=== PATIENT | female | born 1965 ===

== ENCOUNTER 2017-08-23 10:01 | Emergency (ER) | payer SELFPAY ==
[~2017-08-23] VITALS: Ht 167.6 cm; Wt 79.5 kg
[2017-08-23] MEDS ORDERED: OCEAN NASAL0.65 % ×2 (10:26→10:44)
[2017-08-23] MEDS ORDERED: AFRIN 12 HOUR0.05 % ×2 (10:26→10:44)
[2017-08-23] MEDS ORDERED: MOTRIN800 MG PO ×2 (10:26→10:44)
[2017-08-23] MEDS ORDERED: BACTRIM DS1 TAB PO ×2 (10:26→10:44)
[2017-08-23 10:38] LABS: INFLUENZA A NONE DETECTED (NONE DETECT); INFLUENZA B NONE DETECTED (NONE DETECT)
[2017-08-23 10:46] VITALS: BP 139/92
== END 2017-08-23 10:59 | disposition home or self-care (01) | DRG 153 ==
LOC: ED 10:01
PROVIDERS: Emergency Medicine
DX: J01.90 Acute sinusitis, unspecified (principal); R05 Cough; R50.9 Fever, unspecified; R11.2 Nausea with vomiting, unspecified; R51 Headache